=== PATIENT | male | born 1980 | race African-American/Black ===

== ENCOUNTER 2016-07-20 22:06 | Emergency (ER) | payer OTHER ==
[~2016-07-20] VITALS: Ht 172.7 cm; Wt 74.8 kg
[2016-07-21 00:19] VITALS: BP 106/58
== END 2016-07-21 00:21 | disposition home or self-care (01) ==
LOC: ER 22:06
DX: F10.120 Alcohol abuse with intoxication, uncomplicated (principal); F10.99 Alcohol use, unspecified with unspecified alcohol-induced disorder; F12.10 Cannabis abuse, uncomplicated